=== PATIENT | male | born 1960 | race African-American/Black ===

== ENCOUNTER 2019-08-01 12:29 | Inpatient (IN) | payer SELFPAY ==
[2019-07-31 22:30] VITALS: BP 163/104
[~2019-08-01] VITALS: Ht 170.2 cm; Wt 72.1 kg
[2019-08-01] MEDS ORDERED: SODIUM CHLORIDE 0.9% 1,000 ML IV ONE (13:18)
[2019-08-01] MEDS ORDERED: LEVETIRACETAM 500MG PREMIX 100 ML IV ONE (13:30)
[2019-08-01 14:21] LABS: BASOPHILS % 0.5 % (0.0-2.0); EOSINOPHILS % 0.3 % (0.0-5.0); HEMOGLOBIN. 12.9 g/dL (14.0-18.0); LYMPHOCYTES % 11.1 % (20.0-50.0); MEAN CORPUSCULAR HEMOGLOBIN 31.9 pg (28.0-32.0); MEAN CORPUSCULAR VOLUME 94.2 fL (80.0-94.0); MEAN PLATELET VOLUME 8.4 fl (7.4-10.4); MONOCYTES % 4.7 % (2.0-8.0); NEUTROPHILS % 83.4 % (40.0-76.0); PLATELET 206 x1000/uL (130-400); RED BLOOD CELL COUNT 4.03 mill/uL (4.7-6.1); RED CELL DISTRIBUTION WIDTH 13.7 % (11.6-14.6)
[2019-08-01 14:24] LABS: CHLORIDE 103 mEq/L (98-107)
[2019-08-01 14:28] LABS: ETHANOL BLOOD < 10 mg/dL
[2019-08-01 14:29] LABS: PROTHROMBIN TIME 10.4 sec (9.6-11.0)
[2019-08-01] MEDS ORDERED: MAGNESIUM 2 G PREMIX 50 ML IV ONE (15:00)
[2019-08-01] MEDS ORDERED: FOLIC ACID 1 MG, THIAMINE HCL 100 MG, MVI, ADULT NO.1 10 ML in DEXTROSE 5% WATER 1,000 ML IV ONE ×4 (15:00)
[2019-08-01] MEDS ORDERED: FOLIC ACID 1 MG, MVI, ADULT NO.1 10 ML in DEXTROSE 5% WATER 1,000 ML IV NR ×3 (16:45)
[2019-08-01] MEDS ORDERED: ACETAMINOPHEN 325MG TABLET PO PRN (16:45)
[2019-08-01] MEDS ORDERED: ONDANSETRON HCL 4MG/2ML INJ IV PRN (16:45)
[2019-08-01] MEDS: LORAZEPAM 2MG/ML CPJ IV PRN ×2 (17:13→21:59)
[2019-08-01] MEDS ORDERED: THIAMINE HCL 100MG TABLET PO ONE (17:15)
[2019-08-01 17:35] LABS: CLARITY URINE CLEAR (CLEAR); COLOR URINE YELLOW (YELLOW); KETONES URINE NEGATIVE (NEGATIVE); LEUKOCYTE ESTERASE URINE 1+ (NEGATIVE); NITRITE URINE POSITIVE (NEGATIVE); OCCULT BLOOD URINE NEGATIVE (NEGATIVE); PROTEIN URINE NEGATIVE (NEGATIVE); SPECIFIC GRAVITY URINE 1.011 (1.005-1.030); UROBILINOGEN URINE 0.2 E.U./dL (0.2-1.0)
[2019-08-01 17:47] LABS: *AMPHETAMINES SCREEN URINE NEGATIVE (NEGATIVE); *BARBITURATES SCREEN URINE NEGATIVE (NEGATIVE)
[2019-08-01 17:48] LABS: *BENZODIAZEPINES SCREEN URINE NEGATIVE (NEGATIVE); *COCAINE SCREEN URINE PRESUMTIVE POSITIVE (NEGATIVE); CANNABINOID URINE SCREEN PRESUMTIVE POSITIVE (NEGATIVE); METHADONE URINE SCREEN NEGATIVE (NEGATIVE); OPIATES URINE SCREEN NEGATIVE (NEGATIVE); PHENCYCLIDINE URINE SCREEN NEGATIVE (NEGATIVE)
[2019-08-01] MEDS ORDERED: CEFTRIAXONE 1 G PREMIX 50 ML IV ONE (19:00)
[2019-08-01 23:00] VITALS: BP 163/104
[2019-08-02] VITALS: BP 168/93
[2019-08-02 04:00] VITALS: BP 141/72
[2019-08-02] MEDS: LORAZEPAM 2MG/ML CPJ IV PRN ×3 (06:52→23:11)
[2019-08-02] MEDS ORDERED: HALOPERIDOL LACTATE 5MG/ML VIAL IM PRN (08:00)
[2019-08-02] MEDS ORDERED: THIAMINE HCL 100MG TABLET PO SCH (09:00)
[2019-08-02] MEDS ORDERED: CEFTRIAXONE 1 G PREMIX 50 ML IV SCH ×2 (15:00→18:30)
[2019-08-02] MEDS ORDERED: FOLIC ACID 1 MG, MVI, ADULT NO.1 10 ML in DEXTROSE 5% WATER 1,000 ML IV SCH ×3 (17:00)
[2019-08-02 20:00] VITALS: BP 143/90
[2019-08-03] VITALS: BP 167/89
[2019-08-03 04:00] VITALS: BP 160/91
[2019-08-03 06:57] LABS: BASOPHILS % 0.4 % (0.0-2.0); EOSINOPHILS % 2.1 % (0.0-5.0); HEMATOCRIT. 40.5 % (42.0-52.0); HEMOGLOBIN. 13.6 g/dL (14.0-18.0); LYMPHOCYTES % 22.4 % (20.0-50.0); MEAN CORPUSCULAR HEMOGLOBIN 31.5 pg (28.0-32.0); MEAN CORPUSCULAR VOLUME 93.8 fL (80.0-94.0); MEAN PLATELET VOLUME 8.3 fl (7.4-10.4); MONOCYTES % 5.5 % (2.0-8.0); NEUTROPHILS % 69.6 % (40.0-76.0); PLATELET 218 x1000/uL (130-400); RED BLOOD CELL COUNT 4.32 mill/uL (4.7-6.1); RED CELL DISTRIBUTION WIDTH 13.5 % (11.6-14.6)
[2019-08-03 07:09] LABS: CHLORIDE 104 mEq/L (98-107)
[2019-08-03] MEDS ORDERED: HYDRALAZINE 20MG/ML VIAL IV PRN (12:15)
[2019-08-03] MEDS ORDERED: AMLODIPINE 5MG TABLET PO SCH (21:00)
== END 2019-08-03 07:00 | disposition left against medical advice (07) | DRG 52 ==
LOC: ER 13:24 → ENRESERV 20:18 → 6WST 22:23
PROVIDERS: ADMIT Internal Medicine; ATTEND Internal Medicine
DX: G92 Toxic encephalopathy (principal); N17.0 Acute kidney failure with tubular necrosis; Z87.891 Personal history of nicotine dependence; G40.89 Other seizures; E83.42 Hypomagnesemia; F14.90 Cocaine use, unspecified, uncomplicated; I10 Essential (primary) hypertension; F12.90 Cannabis use, unspecified, uncomplicated; Z53.29 Procedure and treatment not carried out because of patient's decision for other reasons; I16.0 Hypertensive urgency; N39.0 Urinary tract infection, site not specified; Z72.89 Other problems related to lifestyle; Z78.1 Physical restraint status
CPT/HCPCS: 36415; 71045; 80048; 80053; 80305; 80320; 81003; 82140; 83735; 84484; 85025; 87077; 87186; 93005; 99285; J0696; J1630; J1953; J2060; J3475; J3490; J7030; J7070; G0480